=== PATIENT | female | born 1935 | race Caucasian/White ===

== ENCOUNTER → 2020-01-19 11:04 | Outpatient (REF) | payer MEDICARE, BC, SELFPAY | LOC: ANHLAB 11:04 | PROVIDERS: PCP Internal Medicine; Visit Provider Nurse Practitioner Family | DX: C44.311 Basal cell carcinoma of skin of nose (principal) | CPT/HCPCS: 88305 ==

== ENCOUNTER → 2020-02-21 07:30 | Outpatient (REF) | payer MEDICARE, BC, SELFPAY | LOC: ANHLAB 07:30 | PROVIDERS: PCP Internal Medicine; Visit Provider Nurse Practitioner | DX: C44.311 Basal cell carcinoma of skin of nose (principal) | CPT/HCPCS: 88305; 88331 ==

== ENCOUNTER → 2020-02-29 11:47 | Outpatient (CLI) | payer MEDICARE, BC, SELFPAY ==
--- NOTE | ~2020-02-29 | MM_ITS ---
EXAMINATION: MM screening nela BI w emily HISTORY: Screening mammogram TECHNIQUE: Craniocaudal and mediolateral oblique 3-D tomosynthesis images were obtained and synthetic 2-D images were generated. CAD analysis was submitted and interpreted. COMPARISON: 11/30/2018, 11/13/2017, 10/03/2016 bilateral digital screening mammogram examinations. BREAST PARENCHYMAL COMPOSITION: The breasts are heterogeneously dense, which may obscure small masses . FINDINGS: There is no evidence of suspicious mass, calcification, or architectural distortion to sugg est malignancy in either breast. There has been no suspicious interval change. IMPRESSION: 1. No mammographic evidence of malignancy. 2. Recommend routine screening mammography in one year. BI-RADS Category 1: Negative Reviewed, dictated and finalized at location A.
== END ==
PROVIDERS: PCP Internal Medicine; Visit Provider Nurse Practitioner Obstetrics & Gynecology
DX: Z12.31 Encounter for screening mammogram for malignant neoplasm of breast (principal)
CPT/HCPCS: 77063; 77067

== ENCOUNTER 2020-03-18 06:46 | Outpatient (NON) | payer MEDICARE, BC, SELFPAY ==
[2020-03-18 18:59] LABS: SARS-CoV-2 RNA PCR Negative
== END 2020-03-18 06:47 ==
PROVIDERS: PCP Internal Medicine; Visit Provider Internal Medicine
DX: Z20.828 Contact with and (suspected) exposure to other viral communicable diseases (principal); R68.89 Other general symptoms and signs
CPT/HCPCS: 87635; C9803; U0003

== ENCOUNTER 2020-09-27 17:55 | Emergency (ER) | payer MEDICARE, BC, SELFPAY ==
[2020-09-27 18:08] VITALS: BP 153/72; PULSE 84; RESP 16; TEMP 36.8; O2SAT 99
--- NOTE | 2020-09-27 18:42 | ED.WOUNDLAC ---
HPI - Wound/Laceration General Chief Complaint: Wound/Laceration Stated Complaint: cut right thumb Time Seen by Provider: 09/27/20 18:20 Source: patient and RN notes reviewed Mode of arrival: ambulatory Limitations: no limitations History of Present Illness HPI narrative: Patient presents today complaining of an injury to her right first finger. She sliced it using a mandolin slicer at home at 1615 this evening. She is up-to-date on her tetanus vaccine in 2017. She presents today because she cannot get the bleeding to stop. She currently rates her pain 06/18 and denies any numbness or tingling in the finger. Related Data Home Medications Medication Instructions Recorded Confirmed aspirin 81 mg chewable tablet 81 mg PO DAILY 04/05/19 09/27/20 hydroxyurea 500 mg capsule 500 mg PO 5XW cap 04/05/19 09/27/20 metoprolol succinate 25 mg capsule 25 mg PO DAILY 04/05/19 09/27/20 sprinkle, ext. release 24 hr tcmpbdjckp-[id number]-xddi 1 cap PO Q4H PRN 09/27/20 09/27/20 calcium carbonate-vitamin D3 2 tablet PO DAILY 09/27/20 09/27/20 [Caltrate 600 plus D] cholecalciferol (vitamin D3) 10 mcg PO DAILY 09/27/20 09/27/20 docusate sodium [Colace] 100 mg PO DAILY 09/27/20 09/27/20 famotidine 40 mg PO DAILY 09/27/20 09/27/20 ibandronate 150 mg PO MONTHLY 09/27/20 09/27/20 trazodone 50 mg PO DAILY PRN 09/27/20 09/27/20 Allergies Allergy/AdvReac Type Severity Reaction Status Date / Time clarithromycin Allergy Unknown Unknown Verified 09/27/20 18:17 guaifenesin Allergy Unknown Unknown Verified 09/27/20 18:17 Review of Systems Review of Systems: Narrative: CONSTITUTIONAL: Denies body aches, fever, chills, or sweats. EYES: Denies visual changes, redness, or discharge. ENT: Denies rhinorrhea, congestion, sore throat, or otalgia. CARDIOVASCULAR: Denies chest pain, palpitations, or edema. RESPIRATORY: Denies cough or dyspnea. GASTROINTESTINAL: Denies abdominal pain, nausea, vomiting, or diarrhea. GENITOURINARY: Denies dysuria or hematuria. SKIN: Denies rash, itching. + Right finger laceration MUSCULOSKELETAL: Denies back pain, joint pain, or myalgia. NEUROLOGIC: Denies headache, numbness, tingling, or weakness. PSYCH: Denies depression or anxiety. [facility] Past Medical History Medical History (Updated 09/27/20 @ 18:47 by Lisa Frank, [facility], ) Age related osteoporosis Anxiety disorder Chronic GERD History of basal cell carcinoma (BCC) Insomnia disorder Macrocytosis Other and unspecified hyperlipidemia Thrombocytosis Vitamin deficiency, unspecified Surgical History Surgical History History of D&C History of hysterectomy Family History Family History Mother Family history of arthritis Family history of heart disease in male family member before age 55 Sibling Family history of arthritis Family history of heart disease in male family member before age 55 Father Family history of arthritis Family history of heart disease in male family member before age 55 Social History Social History Smoking status: Never smoker Alcohol intake: current Comments At time of signature, I have reviewed and agree with nursing past medical, surgical, social and family history unless otherwise noted. Please see nursing chart for further information. There is no relevant family history pertinent to the presenting complaint Exam Narrative: Exam Narrative: GENERAL: Well-appearing, well-nourished, and in no acute distress. HEAD: Normocephalic, atraumatic. EYES: EOMI. No redness or drainage. Conjunctivae normal. ENT: Mucous membranes pink and moist. NECK: Normal AROM. Supple. No lymphadenopathy. CHEST: No respiratory distress. Clear to auscultation. HEART: Regular rate and rhythm. No murmur appreciated. Normal peripheral pulses. ABDOMEN: Soft, nontender
== END 2020-09-27 19:08 | disposition home or self-care (01) ==
PROVIDERS: Emergency Provider Nurse Practitioner; PCP Internal Medicine
DX: S61.011A Laceration without foreign body of right thumb without damage to nail, initial encounter (principal); W27.4XXA Contact with kitchen utensil, initial encounter; Y93.89 Activity, other specified; M81.0 Age-related osteoporosis without current pathological fracture; K21.9 Gastro-esophageal reflux disease without esophagitis; Z85.828 Personal history of other malignant neoplasm of skin; E78.5 Hyperlipidemia, unspecified
CPT/HCPCS: 99212; G0463

== ENCOUNTER → 2021-03-22 11:06 | Outpatient (CLI) | payer MEDICARE, BC, SELFPAY ==
--- NOTE | ~2021-03-22 | MM_ITS ---
EXAMINATION: MM screening nela BI w emily HISTORY: Screening TECHNIQUE: Craniocaudal and mediolateral oblique 3-D tomosynthesis images were obtained and synthetic 2-D images were generated. CAD analysis was submitted and interpreted. COMPARISON: Comparison to multiple prior studies sequentially, with oldest reviewed study dated 09/24. BREAST PARENCHYMAL COMPOSITION: The breasts are extremely dense, which lowers the sensitivity of mamm ography FINDINGS: There is no evidence of suspicious mass, calcification, or architectural distortion to sugg est malignancy in either breast. There has been no suspicious interval change. IMPRESSION: 1. No mammographic evidence of malignancy. 2. Recommend routine screening mammography in one year. BI-RADS Category 1: Negative Reviewed, dictated and finalized at location A.
--- NOTE | ~2021-03-22 | DEXA_ITS ---
Bone Density Report Name: Alberta Sher Age: 85 Sex: Female Ethnicity: White Date of : 1935 Indication: postmenopausal osteoporosis; monitoring treatment; parental hip fracture; height loss; rheumatoid arthritis; secondary osteoporosis; Referring Provider: Herman Castillo Study: Bone densitometry was performed. Exam Date: March 22, 2021 Accession number: [id number] Bone Density: Region BMD T-score Z-score Classification AP Spine (L1-L4) 0.964 -0.8 2.1 Normal Femoral Neck (Left) 0.528 -2.9 -0.4 Osteoporosis Total Hip (Left) 0.623 -2.6 -0.3 Osteoporosis Femoral Neck (Right) 0.541 -2.8 -0.3 Osteoporosis Total Hip (Right) 0.583 -2.9 -0.6 Osteoporosis Total Hip Mean 0.603 -2.8 -0.5 Osteoporosis World Health Organization criteria for BMD impression classify patients as: Normal (T-score at or above -1.0), Osteopenia (T-score between -1.0 and -2.5), or Osteoporosis (T-score at or below -2.5). 10-year Fracture Risk: FRAX not reported because: Some T-score for Spine Total or Hip Total or Femoral Neck at or below -2.5 Treated for osteoporosis Previous Exams: Region Exam Age BMD T-score BMD Change BMD Change Date g/cm2 vs Baseline vs Previous AP Spine(L1-L4) 03/22/2021 85 0.964 -0.8 0.082 -0.020 11/30/2018 83 0.984 -0.6 0.102 0.000 10/03/2016 81 0.984 -0.6 0.102 0.031* 09/21/2014 79 0.954 -0.8 0.071 0.029* 02/24/2012 76 0.925 -1.1 0.042 -0.015 01/23/2011 75 0.940 -1.0 0.058 0.029* 06/21/2009 73 0.911 -1.2 0.029 0.056* 06/17/2008 72 0.855 -1.7 -0.027 -0.027 05/24/2002 66 0.882 -1.5 Total Hip(Left) 03/22/2021 85 0.623 -2.6 -0.016 0.014 11/30/2018 83 0.609 -2.7 -0.031 -0.032* 10/03/2016 81 0.641 -2.5 0.002 0.007 09/21/2014 79 0.634 -2.5 -0.006 0.038* 02/24/2012 76 0.596 -2.8 -0.044 -0.080* 01/23/2011 75 0.676 -2.2 0.037 0.003 06/21/2009 73 0.673 -2.2 0.033 0.073* 06/17/2008 72 0.599 -2.8 -0.040 -0.040 05/24/2002 66 0.640 -2.5 Total Hip(Right) 03/22/2021 85 0.583 -2.9 -0.055 -0.017 11/30/2018 83 0.599 -2.8 -0.038 0.002 10/03/2016 81 0.597 -2.8 -0.041 -0.014 09/21/2014 79 0.611 -2.7 -0.027 0.011 02/24/2012 76 0.600 -2.8 -0.037 -0.030* 01/23/2011 75 0.630 -2.6 -0.00
== END ==
PROVIDERS: PCP Internal Medicine; Visit Provider Obstetrics & Gynecology
DX: Z12.31 Encounter for screening mammogram for malignant neoplasm of breast (principal); M81.0 Age-related osteoporosis without current pathological fracture
CPT/HCPCS: 77063; 77067; 77080

== ENCOUNTER → 2021-05-07 13:35 | Outpatient (REF) | payer MEDICARE, BC, SELFPAY | LOC: ANHLAB 13:35 | PROVIDERS: PCP Internal Medicine; Visit Provider Nurse Practitioner | DX: D49.2 Neoplasm of unspecified behavior of bone, soft tissue, and skin (principal) | CPT/HCPCS: 88305 ==

== ENCOUNTER → 2021-06-25 13:33 | Outpatient (REF) | payer MEDICARE, BC, SELFPAY | LOC: ANHLAB 13:33 | PROVIDERS: PCP Internal Medicine; Visit Provider Nurse Practitioner | DX: L90.5 Scar conditions and fibrosis of skin (principal); L72.0 Epidermal cyst | CPT/HCPCS: 88304 ==

== ENCOUNTER → 2021-07-10 07:47 | Outpatient (CLI) | payer MEDICARE, BC, SELFPAY ==
[2021-07-10 13:22] LABS: Influenza A QL RT-PCR Negative (Negative); Influenza B QL RT-PCR Negative (Negative); SARS-CoV-2 RNA PCR Negative
== END ==
PROVIDERS: PCP Internal Medicine; Visit Provider Internal Medicine
DX: R68.89 Other general symptoms and signs (principal); Z20.822 Contact with and (suspected) exposure to COVID-19
CPT/HCPCS: 87502; C9803; U0003; U0005

== ENCOUNTER → 2021-09-13 09:37 | Outpatient (REF) | payer MEDICARE, BC, SELFPAY | LOC: ANHLAB 09:37 | PROVIDERS: PCP Internal Medicine; Visit Provider Nurse Practitioner | DX: C44.629 Squamous cell carcinoma of skin of left upper limb, including shoulder (principal) | CPT/HCPCS: 88305 ==

== ENCOUNTER → 2021-10-22 09:26 | Outpatient (REF) | payer MEDICARE, BC, SELFPAY | LOC: ANHLAB 09:26 | PROVIDERS: PCP Internal Medicine; Visit Provider Surgery Plastic and Reconstructive Surgery | DX: C44.629 Squamous cell carcinoma of skin of left upper limb, including shoulder (principal) | CPT/HCPCS: 88305; 88331 ==

== ENCOUNTER 2022-03-16 07:00 | Outpatient (NON) | payer MEDICARE, BC, SELFPAY | END 2022-04-17 15:31 | disposition home or self-care (01) | PROVIDERS: PCP Internal Medicine; Visit Provider Nurse Practitioner | DX: C44.622 Squamous cell carcinoma of skin of right upper limb, including shoulder (principal) | CPT/HCPCS: 88305 ==

== ENCOUNTER → 2022-05-13 08:35 | Outpatient (CLI) | payer MEDICARE, BC, SELFPAY ==
--- NOTE | ~2022-05-13 | XR_ITS ---
XR lumbar spine 2-3V DATE: 05/13/2022 08:54 INDICATION: Back pain TECHNIQUE: AP, lateral, coned lateral lumbosacral views COMPARISON: None FINDINGS: There is osteopenia. There is thoracolumbar levoscoliosis. There is severe degenerative disc disease at L5-S1 with virtual obliteration of disc space, vacuum ph enomenon, eburnation and degenerative spurring. Moderately prominent degenerative disc disease at L1-2, L2-3 and mild degenerative disc disease at L3 -4 and L4-5. There is degenerative change at the apophyseal joints with associated grade 1 anterolisthesis at L4-5 . Included lower thoracic and lumbar pedicles are intact. No fracture or bone destruction is detected. The sacroiliac joints are intact. IMPRESSION: Osteopenia Levoscoliosis Multilevel degenerative disc disease, most severe at L5-S1 Degenerative changes of apophyseal joints with associated grade 1 anterolisthesis at L4-5 Reviewed, dictated and finalized at location B. STEN REFINER IMPRESSION: Osteopenia Levoscoliosis Multilevel degenerative disc disease, most severe at L5-S1 Degenerative changes of apophyseal joints with associated grade 1 anterolisthes is at L4-5
== END ==
PROVIDERS: PCP Internal Medicine; Visit Provider Internal Medicine
DX: M53.87 Other specified dorsopathies, lumbosacral region (principal); M85.88 Other specified disorders of bone density and structure, other site; M51.37 Other intervertebral disc degeneration, lumbosacral region
CPT/HCPCS: 72100

== ENCOUNTER 2022-06-10 09:01 | Emergency (ER) | payer MEDICARE, BC, SELFPAY ==
--- NOTE | 2022-06-10 09:04 | ED.URI ---
HPI - URI/Sore Throat General Chief Complaint: Upper Respiratory Infection Stated Complaint: Cough Time Seen by Provider: 06/10/22 09:10 Source: patient, RN notes reviewed and old records reviewed Mode of arrival: ambulatory Limitations: no limitations History of Present Illness HPI Narrative: 86-year-old female presents to the [facility] with complaints of a cough that started last night, about 12 hours SIDE TRIMMER. Patient states she was coughing most of last night and had trouble sleeping due to her cough. Denies any chest pain or shortness of breath. Denies any abdominal pain. Denies fevers. Has taken Coricidin for her symptoms with no relief MD elicited complaint: cough Related Data Home Medications Medication Instructions Recorded Confirmed aspirin 81 mg chewable tablet 81 mg PO DAILY 04/05/19 06/10/22 hydroxyurea 500 mg capsule 500 mg PO 5XW 04/05/19 06/10/22 metoprolol succinate 25 mg capsule 25 mg PO DAILY 04/05/19 06/10/22 sprinkle, ext. release 24 hr calcium carbonate 600 mg-vitamin 2 tablet PO DAILY 09/27/20 06/10/22 D3 20 mcg (800 unit) chewable tablet (Caltrate 600 plus D) cholecalciferol (vitamin D3) 10 10 mcg PO DAILY 09/27/20 06/10/22 mcg (400 unit) tablet docusate sodium 100 mg capsule 100 mg PO DAILY 09/27/20 06/10/22 (Colace) ibandronate 150 mg tablet 150 mg PO MONTHLY 09/27/20 06/10/22 ferrous sulfate 324 mg (65 mg 324 mg PO DAILY 10/23/20 06/10/22 iron) tablet,delayed release Allergies Allergy/AdvReac Type Severity Reaction Status Date / Time No Known Allergies Allergy Verified 06/10/22 09:07 Review of Systems Review of Systems: All systems reviewed & are unremarkable except as noted in HPI and below Constitutional: Constitutional: Reports no additional constitutional complaints Eyes: Eyes: Reports no additional eye complaints ENT: Reports system reviewed and no additional complaints, except as documented Cardiovascular: Cardiovascular: Reports no additional cardiovascular complaints, Denies chest pain and Denies dyspnea Respiratory: Respiratory: Reports as per HPI, Denies chest congestion, Reports cough and Denies dyspnea Gastrointestinal: Gastrointestinal: Reports no additional gastrointestinal complaints, Denies abdominal pain, Denies nausea and Denies vomiting Musculoskeletal: Musculoskeletal: Reports no additional musculoskeletal complaints Integumentary/Breasts: Skin/Breast: Reports system reviewed and no additional complaints, except as docu Neurologic: Reports system reviewed and no additional complaints, except as documented Psychiatric: Psychiatric: Reports no additional psychiatric complaints Allergic/Immunologic: Allergic/Immunologic: Reports no additional allergic/immunologic complaints PMFSH Past Medical History Medical History Age related osteoporosis Anxiety disorder Ascending aortic aneurysm Chronic GERD Headache History of basal cell carcinoma (BCC) Hypertension Insomnia disorder Macrocytosis Other and unspecified hyperlipidemia Thrombocytosis Vitamin deficiency, unspecified Surgical History Surgical History History of D&C History of hysterectomy Family History Family History Mother Family history of arthritis Family history of heart disease in male family member before age 55 Sibling Family history of arthritis Family history of heart disease in male family member before age 55 Father Family history of arthritis Family history of heart disease in male family member before age 55 Social History Social History Smoking status: Never smoker Second hand tobacco smoke exposure: No Alcohol intake: current Alcohol use details: a glass of wine occasionally Substance use: never Substance use type: does not use La
[2022-06-10 09:11] VITALS: BP 166/88; PULSE 69; RESP 16; TEMP 36.4; O2SAT 99
== END 2022-06-10 09:27 | disposition home or self-care (01) ==
PROVIDERS: Emergency Provider Nurse Practitioner; PCP Internal Medicine
DX: R09.82 Postnasal drip (principal); R05.9 Cough, unspecified; M81.0 Age-related osteoporosis without current pathological fracture; K21.9 Gastro-esophageal reflux disease without esophagitis; I10 Essential (primary) hypertension; D75.839 Thrombocytosis, unspecified; Z85.828 Personal history of other malignant neoplasm of skin; Z79.82 Long term (current) use of aspirin
CPT/HCPCS: 99213; G0463

== ENCOUNTER 2022-06-17 13:30 | Outpatient (NON) | payer MEDICARE, BC, SELFPAY | END 2022-06-17 13:31 | disposition home or self-care (01) | LOC: ANHLAB 13:31 | PROVIDERS: PCP Internal Medicine; Visit Provider Nurse Practitioner | DX: C44.92 Squamous cell carcinoma of skin, unspecified (principal) | CPT/HCPCS: 88305; 88331 ==

== ENCOUNTER → 2022-07-31 13:18 | Outpatient (CLI) | payer MEDICARE, BC, SELFPAY ==
--- NOTE | ~2022-07-31 | MM_ITS ---
EXAMINATION: MM screening nela BI w emily HISTORY: Screening mammogram TECHNIQUE: Craniocaudal and mediolateral oblique 3-D tomosynthesis images were obtained and synthetic 2-D images were generated. CAD analysis was submitted and interpreted. COMPARISON: 03/22/2021, 02/29/2020, 11/26/2018 bilateral screening mammogram examinations BREAST PARENCHYMAL COMPOSITION: The breasts are extremely dense, which lowers the sensitivity of mamm ography. FINDINGS: There is no evidence of suspicious mass, calcification, or architectural distortion to sugg est malignancy in either breast. There has been no suspicious interval change. IMPRESSION: 1. No mammographic evidence of malignancy. 2. Recommend routine screening mammography in one year. BI-RADS Category 1: Negative Reviewed, dictated and finalized at location A. 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
== END ==
PROVIDERS: PCP Internal Medicine; Visit Provider Nurse Practitioner Obstetrics & Gynecology
DX: Z12.31 Encounter for screening mammogram for malignant neoplasm of breast (principal)
CPT/HCPCS: 77063; 77067

== ENCOUNTER 2022-09-04 08:41 | Emergency (ER) | payer MEDICARE, BC, SELFPAY ==
--- NOTE | ~2022-09-04 | XR_ITS ---
XR humerus LT DATE: 09/04/2022 09:18 INDICATION: Fall. Pain, limited range of motion TECHNIQUE: AP and lateral views of left humerus COMPARISON: None FINDINGS: Mildly anteromedially displaced acute left surgical neck humeral fracture. No other fracture is evident. Normal alignment at the acromioclavicular and glenohumeral and elbow [place] ints. IMPRESSION: Left surgical neck humeral fracture Reviewed, dictated and finalized at location B.
--- NOTE | ~2022-09-04 | XR_ITS ---
XR forearm LT 2V DATE: 09/04/2022 09:18 INDICATION: Fall. Left arm injury, pain TECHNIQUE: 2 views COMPARISON: None FINDINGS: There is osteopenia. No fracture or dislocation of the left forearm. Normal alignment at th e elbow and wrist joints. There is osteoarthritic change at the triscaphe and first carpometacarpal joints. 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
[2022-09-04 08:52] VITALS: BP 188/86; PULSE 70; RESP 18; TEMP 36.6; O2SAT 100
[2022-09-04 08:55] VITALS: BP 189/84; PULSE 67; RESP 16; TEMP 36.5; O2SAT 98
--- NOTE | 2022-09-04 08:57 | ED.FALL ---
HPI - Fall General Chief Complaint: Fall <Mark Nam PA-C - Last Filed: 09/04/22 12:38> Stated Complaint: left arm injury s/p fall <Mark Nam PA-C - Last Filed: 09/04/22 12:38> Time Seen by Provider: 09/04/22 08:52 <Mark Nam PA-C - Last Filed: 09/04/22 12:38> Source: patient <Mark Nam PA-C - Last Filed: 09/04/22 12:38> Mode of arrival: ambulatory <Mark Nam PA-C - Last Filed: 09/04/22 12:38> Limitations: no limitations <Mark Nam PA-C - Last Filed: 09/04/22 12:38> History of Present Illness HPI Narrative: This is an 86-year-old female presents to the ED with chief complaint of left arm injury s/p fall occurring just prior to arrival in the ED. Patient is coming from home. Fall was reported as mechanical as she slipped on the bottom step while going out to feed birds this morning. She reports left upper arm pain and a skin tear to the left elbow. Denies head injury or LOC.. Denies headache, neck pain, back pain. Denies any further site of injury or pain. Takes daily baby aspirin but no blood thinners. <Mark Nam PA-C - Last Filed: 09/04/22 12:38> Related Data Home Medications: Home Medications Medication Instructions Recorded Confirmed aspirin 81 mg chewable tablet 81 mg PO DAILY 04/05/19 06/10/22 hydroxyurea 500 mg capsule 500 mg PO 5XW 04/05/19 06/10/22 metoprolol succinate 25 mg capsule 25 mg PO DAILY 04/05/19 06/10/22 sprinkle, ext. release 24 hr calcium carbonate 600 mg-vitamin 2 tablet PO DAILY 09/27/20 06/10/22 D3 20 mcg (800 unit) chewable tablet (Caltrate 600 plus D) cholecalciferol (vitamin D3) 10 10 mcg PO DAILY 09/27/20 06/10/22 mcg (400 unit) tablet docusate sodium 100 mg capsule 100 mg PO DAILY 09/27/20 06/10/22 (Colace) ibandronate 150 mg tablet 150 mg PO MONTHLY 09/27/20 06/10/22 ferrous sulfate 324 mg (65 mg 324 mg PO DAILY 10/23/20 06/10/22 iron) tablet,delayed release <Mark Nam PA-C - Last Filed: 09/04/22 12:38> Allergies/Adverse Reactions: Allergies Allergy/AdvReac Type Severity Reaction Status Date / Time No Known Allergies Allergy Verified 06/10/22 09:07 <Mark Nam PA-C - Last Filed: 09/04/22 12:38> Review of Systems Review of Systems: CONSTITUTIONAL: Denies fever, chills, or sweats. EYES: Denies visual changes, redness, or discharge. ENT: Denies rhinorrhea, congestion, sore throat, or otalgia. CARDIOVASCULAR: Denies chest pain, palpitations, or edema. RESPIRATORY: Denies cough or dyspnea. GASTROINTESTINAL: Denies abdominal pain, nausea, vomiting, or diarrhea. GENITOURINARY: Denies dysuria or hematuria. SKIN: Denies rash or itching. MUSCULOSKELETAL: Endorses left shoulder and elbow pain. Endorses left wrist pain. Denies back pain, other joint pain, or myalgia. NEUROLOGIC: Denies headache, numbness, dizziness, or weakness. Denies LOC. PSYCHIATRIC: Denies anxiety or depression. <Mark Nam PA-C - Last Filed: 09/04/22 12:38> [facility] Past Medical History Medical History: Medical History Age related osteoporosis Anxiety disorder Ascending aortic aneurysm Chronic GERD Headache History of basal cell carcinoma (BCC) Hypertension Insomnia disorder Macrocytosis Other and unspecified hyperlipidemia Thrombocytosis Vitamin deficiency, unspecified <Mark Nam PA-C - Last Filed: 09/04/22 12:38> Surgical History Surgical History: Surgical History History of D&C History of hysterectomy <Mark Nam PA-C - Last Filed: 09/04/22 12:38> Family History Family History: Family History Mother Family history of arthritis Family history of heart disease in male family member before age 55 Sibling Family history of arthritis Family history of heart disease in male family member before age
[2022-09-04] MEDS: TETANUS,DIPHTHERIA,AC PERTUSSIS ADULT (0.5 ML) BOOSTRIX IM (10:20)
[2022-09-04] MEDS: HYDROcodone/acetaminophen (*CRX) 7.5-325 MG TABLET 1 TAB PO (10:20)
[2022-09-04 10:43] VITALS: BP 160/78; PULSE 60; RESP 18; O2SAT 99
== END 2022-09-04 10:45 | disposition home or self-care (01) ==
PROVIDERS: Emergency Provider Physician Assistant; PCP Internal Medicine
DX: S42.212A Unspecified displaced fracture of surgical neck of left humerus, initial encounter for closed fracture (principal); S51.012A Laceration without foreign body of left elbow, initial encounter; I10 Essential (primary) hypertension; Z23 Encounter for immunization; Z85.828 Personal history of other malignant neoplasm of skin; W10.9XXA Fall (on) (from) unspecified stairs and steps, initial encounter; Y92.009 Unspecified place in unspecified non-institutional (private) residence as the place of occurrence of the external cause
CPT/HCPCS: 73060; 73090; 90471; 90715; 99284; A4565; A9270

== ENCOUNTER 2023-04-09 09:22 | Emergency (ER) | payer MEDICARE, BC, SELFPAY ==
[2023-04-09] VITALS (9 sets, daily range): BP systolic 177–200; BP diastolic 87–102; PULSE 80; RESP 16; TEMP 36.8; O2SAT 98–100
--- NOTE | ~2023-04-09 | CT_ITS ---
EXAMINATION: CT facial & cervical spine wo DATE: 04/09/2023 10:43 INDICATION: Head injury. TECHNIQUE: Computed tomography (CT) of the maxillofacial region and cervical spine was performed with out intravenous contrast. Automated exposure control and iterative reconstruction technique were empl oyed. The dose-length product was 158.65 mGy-cm. COMPARISON: None FINDINGS: MAXILLOFACIAL CT: There is a left frontal scalp hematoma. There are likely changes of ocular lens replacement surgeries . There is mild mucosal thickening in the paranasal sinuses. There is rightward deviation of the nasa l septum. There are fractures of the nasal bones. CERVICAL SPINE CT: There is mild scarring at the lung apices. There is kyphosis of cervical spine. There is 2 mm anterol isthesis of C3 on C4 and C4 on C5 and 2 mm retrolisthesis of C5 on C6. Vertebral body heights are nor mal. There is mildly decreased disc height at C3-C4, moderately decreased disc height at C4-C5, and s everely decreased disc height at C5-C6 and C6-C7. The following disc levels are specifically discusse d: C2-C3: There is ankylosis of the uncovertebral joints. There is ankylosis of the facet joints with mi ld hypertrophy. There is no neural foraminal stenosis. There is no central canal stenosis. C3-C4: There is severe bilateral uncovertebral joint osteoarthritis. There is severe bilateral facet joint osteoarthritis. There is mild bilateral neural foraminal stenosis. There is mild central canal stenosis. C4-C5: There is mild right and severe left uncovertebral joint osteoarthritis. There is severe bilate ral facet joint osteoarthritis. There is mild bilateral neural foraminal stenosis. There is mild cent ral canal stenosis. C5-C6: There is severe bilateral uncovertebral joint osteoarthritis. There is moderate bilateral face t joint osteoarthritis. There is mild bilateral neural foraminal stenosis. There is mild central peggy l stenosis. C6-C7: There is severe bilateral uncovertebral joint osteoarthritis. There is moderate bilateral face t joint osteoarthritis. There is mild bilateral neural foraminal stenosis. There is mild central peggy l stenosis. C7-T1: There is no uncovertebral joint osteoarthritis. There is mild bilateral facet joint osteoarthr itis. There is no neural foraminal stenosis. There is no central canal stenosis. IMPRESSION: 1. Fractures of the nasal bones. 2. Severe cervical spondylosis. Reviewed, dictated and finalized at location E.
--- NOTE | ~2023-04-09 | CT_ITS ---
EXAMINATION: CT brain wo con DATE: 04/09/2023 10:43 INDICATION: Head injury. TECHNIQUE: Computed tomography (CT) of the head was performed without intravenous contrast. The mA wa s adjusted according to patient size. Iterative reconstruction technique was employed. The dose-lengt h product was 605.33 mGy-cm. COMPARISON: None FINDINGS: There are scattered areas of low attenuation in the cerebral white matter. There is no intr acranial hemorrhage, acute infarction, or abnormal intracranial mass lesion. The ventricles are cralos l in size. There is mild mucosal thickening in the paranasal sinuses. The mastoid air cells are carlos l. There is a left frontal scalp hematoma. There are likely changes of ocular lens replacement surger ies. IMPRESSION: 1. Moderate is normal cerebral white matter disease, which likely represents chronic small vessel isc hemic disease. Reviewed, dictated and finalized at location E. IMPRESSION: 1. Moderate is normal cerebral white matter disease, which likely represents ch ronic small vessel ischemic disease.
--- NOTE | 2023-04-09 10:13 | ED.HEATRA ---
HPI - Head Injury General Chief complaint: Head Injury Stated complaint: FALL, HEAD INJURY Time Seen by Provider: 04/09/23 09:39 History of Present Illness HPI Narrative: 87-year-old female reports with her son for evaluation after a ground-level fall that occurred just prior to arrival. Patient states she was walking across [place] [employer] [place] and tripped over the curb, hitting her head on the ground. She denies LOC. She is reporting pain and swelling to her left eyebrow, an abrasion to her right hand and an abrasion to her nose. Patient does states she feels woozy and nauseous. last tetanus unknown. She denies neck pain, back pain, extremity pain, chest pain or shortness of breath, abdominal pain, vision changes or focal numbness or weakness. She is not anticoagulated but does take 81 mg of aspirin daily. Related Data Home Medications Medication Instructions Recorded Confirmed aspirin 81 mg chewable tablet 81 mg PO DAILY 04/05/19 03/06/23 hydroxyurea 500 mg capsule 500 mg PO 5XW 04/05/19 03/06/23 metoprolol succinate 25 mg capsule 25 mg PO DAILY 04/05/19 03/06/23 sprinkle, ext. release 24 hr calcium carbonate 600 mg-vitamin 2 tablet PO DAILY 09/27/20 03/06/23 D3 20 mcg (800 unit) chewable tablet (Caltrate 600 plus D) cholecalciferol (vitamin D3) 10 10 mcg PO DAILY 09/27/20 03/06/23 mcg (400 unit) tablet docusate sodium 100 mg capsule 100 mg PO DAILY 09/27/20 03/06/23 (Colace) ferrous sulfate 324 mg (65 mg 324 mg PO DAILY 10/23/20 03/06/23 iron) tablet,delayed release Allergies Allergy/AdvReac Type Severity Reaction Status Date / Time No Known Allergies Allergy Verified 03/06/23 13:43 Review of Systems Review of Systems: CONSTITUTIONAL: Denies fever, chills EYES: Denies visual changes, redness, or discharge. ENT: Denies rhinorrhea, congestion, sore throat, or otalgia. CARDIOVASCULAR: Denies chest pain, palpitations, or edema. RESPIRATORY: Denies cough or dyspnea. GASTROINTESTINAL: See HPI GENITOURINARY: Denies dysuria or hematuria. SKIN: Denies rash or itching. MUSCULOSKELETAL: See HPI NEUROLOGIC: See HPI PSYCHIATRIC: Denies anxiety or depression. [facility] Past Medical History Medical History Age related osteoporosis Anxiety disorder Ascending aortic aneurysm Chronic GERD Headache History of basal cell carcinoma (BCC) Hypertension Insomnia disorder Macrocytosis Other and unspecified hyperlipidemia Thrombocytosis Vitamin deficiency, unspecified Surgical History Surgical History History of D&C History of hysterectomy Family History Family History Mother Family history of arthritis Family history of heart disease in male family member before age 55 Sibling Family history of arthritis Family history of heart disease in male family member before age 55 Father Family history of arthritis Family history of heart disease in male family member before age 55 Social History Social History Smoking status: Never smoker Second hand tobacco smoke exposure: No Alcohol intake: current Alcohol use details: a glass of wine occasionally Substance use: never Substance use type: does not use Lack of Transportation: No Lack of Food: Never True Current Housing: Decline to Answer Concerned About Future Housing: Decline to Answer Difficulty Paying Gas/Electric Bills: No Difficulty Paying for Meds: No Currently Unemployed: No Education: High School Diploma/GED Difficulty w/ Childcare or Family Care: No Exam Narrative: GENERAL: Well-appearing, in no acute distress. Patient resting comfortably in exam bed. She is pleasant and conversational. HEAD: Hematoma to the left eyebrow with a small amount of overlying ecchymosis with tende
[2023-04-09] MEDS: ACETAMINOPHEN 325 MG TABLET 650 MG PO (11:00)
[2023-04-09] MEDS: ONDANSETRON HCL ODT 4 MG TABLET PO ×2 (11:00→11:28)
[2023-04-09] MEDS: TETANUS,DIPHTHERIA,AC PERTUSSIS ADULT (0.5 ML) BOOSTRIX IM (11:01)
[2023-04-09] MEDS: HYDROcodone/acetaminophen (*CRX) 5-325 MG TABLET 1 TAB PO (11:28)
--- NOTE | 2023-04-09 12:21 | PC.NURSE ---
Has ambulated to bathroom x2 without difficulty. Gait steady.
== END 2023-04-09 12:22 | disposition home or self-care (01) ==
PROVIDERS: Emergency Provider Physician Assistant; PCP Family Medicine
DX: S00.12XA Contusion of left eyelid and periocular area, initial encounter (principal); S02.2XXA Fracture of nasal bones, initial encounter for closed fracture; I10 Essential (primary) hypertension; Z23 Encounter for immunization; I71.40 Abdominal aortic aneurysm, without rupture, unspecified; E78.49 Other hyperlipidemia; E56.9 Vitamin deficiency, unspecified; K21.9 Gastro-esophageal reflux disease without esophagitis; M81.0 Age-related osteoporosis without current pathological fracture; Z85.828 Personal history of other malignant neoplasm of skin; Z79.82 Long term (current) use of aspirin; Z90.710 Acquired absence of both cervix and uterus; R90.82 White matter disease, unspecified; M47.812 Spondylosis without myelopathy or radiculopathy, cervical region; W10.1XXA Fall (on)(from) sidewalk curb, initial encounter
CPT/HCPCS: 70450; 70486; 72125; 90471; 90715; 99284; A9270

== ENCOUNTER → 2023-07-24 12:06 | Outpatient (CLI) | payer MEDICARE, BC, SELFPAY ==
--- NOTE | ~2023-07-24 | DEXA_ITS ---
Bone Density Report Name: DEMETRIUS MIKE Age: 87 Sex: Female Ethnicity: White Date of : 1935 Indication: postmenopausal osteoporosis; monitoring treatment; parental hip fracture; height loss; prior fracture; hysterectomy; Referring Provider: GABRIEL LEAL Study: Bone densitometry was performed. Exam Date: July 24, 2023 Accession number: [id number] Bone Density: Region BMD T-score Z-score Classification AP Spine (L1-L4) 0.985 -0.6 2.3 Normal Femoral Neck (Left) 0.515 -3.0 -0.5 Osteoporosis Total Hip (Left) 0.610 -2.7 -0.4 Osteoporosis Femoral Neck (Right) 0.550 -2.7 -0.2 Osteoporosis Total Hip (Right) 0.602 -2.8 -0.5 Osteoporosis Total Hip Mean 0.606 -2.8 -0.5 Osteoporosis World Health Organization criteria for BMD impression classify patients as: Normal (T-score at or above -1.0), Osteopenia (T-score between -1.0 and -2.5), or Osteoporosis (T-score at or below -2.5). 10-year Fracture Risk: FRAX not reported because: Some T-score for Spine Total or Hip Total or Femoral Neck at or below -2.5 Treated for osteoporosis Previous Exams: Region Exam Age BMD T-score BMD Change BMD Change Date g/cm2 vs Baseline vs Previous AP Spine(L1-L4) 07/24/2023 87 0.985 -0.6 0.103 0.021 03/22/2021 85 0.964 -0.8 0.082 -0.020 11/30/2018 83 0.984 -0.6 0.102 0.000 10/03/2016 81 0.984 -0.6 0.102 0.031* 09/21/2014 79 0.954 -0.8 0.071 0.029* 02/24/2012 76 0.925 -1.1 0.042 -0.015 01/23/2011 75 0.940 -1.0 0.058 0.029* 06/21/2009 73 0.911 -1.2 0.029 0.056* 06/17/2008 72 0.855 -1.7 -0.027 -0.027 05/24/2002 66 0.882 -1.5 Total Hip(Left) 07/24/2023 87 0.610 -2.7 -0.029 -0.013 03/22/2021 85 0.623 -2.6 -0.016 0.014 11/30/2018 83 0.609 -2.7 -0.031 -0.032* 10/03/2016 81 0.641 -2.5 0.002 0.007 09/21/2014 79 0.634 -2.5 -0.006 0.038* 02/24/2012 76 0.596 -2.8 -0.044 -0.080* 01/23/2011 75 0.676 -2.2 0.037 0.003 06/21/2009 73 0.673 -2.2 0.033 0.073* 06/17/2008 72 0.599 -2.8 -0.040 -0.040 05/24/2002 66 0.640 -2.5 Total Hip(Right) 07/24/2023 87 0.602 -2.8 -0.036 0.019 03/22/2021 85 0.583 -2.9 -0.055 -0.017 11/30/2018 83 0.599 -2.8 -0.038 0.002 10/03/2016 81 0.597 -2.8 -0.041 -0.014
== END ==
PROVIDERS: PCP Family Medicine; Visit Provider Family Medicine
DX: M81.0 Age-related osteoporosis without current pathological fracture (principal)
CPT/HCPCS: 77080

== ENCOUNTER 2023-08-19 13:42 | Outpatient (CLI) | payer MEDICARE, BC, SELFPAY ==
--- NOTE | ~2023-08-19 | MM_ITS ---
EXAMINATION: MM screening nela BI w emily HISTORY: Screening mammogram TECHNIQUE: Craniocaudal and mediolateral oblique 3-D tomosynthesis images were obtained and synthetic 2-D images were generated. CAD analysis was submitted and interpreted. COMPARISON: July 31, 2022, March 22, 2021 bilateral screening mammogram examinations BREAST PARENCHYMAL COMPOSITION: The breasts are heterogeneously dense, which may obscure small masses . FINDINGS: There is no evidence of suspicious mass, calcification, or architectural distortion to sugg est malignancy in either breast. There has been no suspicious interval change. IMPRESSION: 1. No mammographic evidence of malignancy. 2. Recommend routine screening mammography in one year. BI-RADS Category 1: Negative Reviewed, dictated and finalized at location A.
== END 2023-08-19 13:43 ==
LOC: MICIMG 13:44
PROVIDERS: Visit Provider Family Medicine
DX: Z12.31 Encounter for screening mammogram for malignant neoplasm of breast (principal)
CPT/HCPCS: 77063; 77067